=== PATIENT | female | born 1940 | race Caucasian/White ===

== ENCOUNTER → 2017-09-26 | Outpatient (CLI) | payer MEDICARE, OTHER ==
[~2017-09-26] MED LIST: AMBIEN CR 6.26.25 MG; ASA5UEC PO; BIOTIN5000 MCG PO; CALCIUM 500 +1 EAC5 PO; DILTIAZEM ER360 MG; FISH OIL 1,001000 M1 PO; FLAX OIL1000 MG PO; GLUCOSAMINE CH; GLUCOSAMINE-MS1 EAC2 PO; L-LYSINE500 M1 PO; LEVOTHYROXIN0.025 MG PO; LYSINE500 MG PO; MAGNESIUM250 M1 PO; MELATONIN3 MG PO; MULTI-VITAMIN1 EAC5 PO; PRILOSEC 20 MG20 MG PO; PRINIVIL5 MG PO; SINGULAIR 10 MG10 M1 PO; TRIAMTERENE-HC1 EAC1; ZETIA10 MG PO
== END ==
LOC: M.CT 10:31
DX: R91.1 Solitary pulmonary nodule (principal); K76.0 Fatty (change of) liver, not elsewhere classified; K80.20 Calculus of gallbladder without cholecystitis without obstruction

== ENCOUNTER → 2018-11-27 | Outpatient (CLI) | payer MEDICARE, OTHER | LOC: M.CT 07:39 | DX: R91.1 Solitary pulmonary nodule (principal) ==